=== PATIENT | female | born 1965 | race African-American/Black ===

== ENCOUNTER 2018-05-29 07:53 | Emergency (ER) | payer BC ==
[~2018-05-29] VITALS: Ht 162.6 cm; Wt 66.8 kg
[2018-05-29 08:44] VITALS: BP 149/98
== END 2018-05-29 08:46 | disposition home or self-care (01) ==
LOC: ER 07:53
DX: S09.8XXA Other specified injuries of head, initial encounter (principal); F12.10 Cannabis abuse, uncomplicated; Z98.890 Other specified postprocedural states; W18.49XA Other slipping, tripping and stumbling without falling, initial encounter; Y93.89 Activity, other specified; Y92.89 Other specified places as the place of occurrence of the external cause; Y99.8 Other external cause status
CPT/HCPCS: 81025; 99282